=== PATIENT | male | born 1960 | race Caucasian/White ===

== ENCOUNTER → 2020-09-11 | Outpatient (CLI) | payer BC ==
[2020-09-11 13:42] LABS: BASO % 0.4 % (0.0-1.0); EOS # 0.1 10^3/uL (0.0-0.5); EOS % 0.8 % (0.0-3.0); HEMATOCRIT 41.2 % (42.0-52.0); HEMOGLOBIN 13.5 g/dl (13.5-17.5); LYMPH # 2.1 10^3/uL (1.5-5.0); LYMPH % 24.3 % (24.0-44.0); MEAN CORPUSCULAR HEMOGLOBIN 31.8 pg (27.0-33.0); MEAN CORPUSCULAR HGB CONC 32.8 g/dl (32.0-36.5); MEAN CORPUSCULAR VOLUME 97.2 fl (80.0-96.0); MONO # 0.8 10^3/uL (0.0-0.8); MONO % 8.8 % (2.0-8.0); NEUTROPHILS # 5.5 10^3/uL (1.5-8.5); NEUTROPHILS % 65.1 % (36.0-66.0); PLATELET COUNT, AUTOMATED 244 10^3/uL (150-450); RED BLOOD COUNT 4.24 10^6/uL (4.30-6.10); WHITE BLOOD COUNT 8.5 10^3/uL (4.0-10.0)
[2020-09-11 14:25] LABS: ERYTHROCYTE SEDIMENTATION RATE 30 mm/hr (0-20)
== END ==
LOC: M PLALAB 09:42
PROVIDERS: ATTEND Orthopaedic Surgery Adult Reconstructive Orthopaedic Surgery
DX: M70.42 Prepatellar bursitis, left knee (principal)

== ENCOUNTER → 2020-09-11 | Outpatient (CLI) | payer BC ==
--- NOTE | 2020-09-11 09:39 | REP ---
INDICATION: PAIN. COMPARISON: None. TECHNIQUE: Four views including upright AP view of both knees. FINDINGS: Standing view shows no evidence of joint space narrowing on either side. Overall mineralization pattern is normal. Lateral and sunrise views however show articular spurring of the patella consistent with early osteoarthritis. There is a diffuse prepatellar soft tissue swelling but no evidence of joint effusion. IMPRESSION: Prepatellar soft tissue swelling. Patellar articular spurring consistent with early osteoarthritis. Otherwise negative. <Electronically signed by Pedro Montero > 09/11/20 [id number]
== END ==
LOC: M SOG 08:17
PROVIDERS: ATTEND Orthopaedic Surgery Adult Reconstructive Orthopaedic Surgery
DX: M25.562 Pain in left knee (principal); M79.89 Other specified soft tissue disorders; M76.52 Patellar tendinitis, left knee

== ENCOUNTER 2021-02-23 21:06 | Emergency (ER) | payer BC ==
[~2021-02-23] VITALS: Ht 172.7 cm; Wt 94.8 kg
[2021-02-23] MEDS ORDERED: LISI20TA35 (21:14)
[2021-02-23 23:31] VITALS: BP 125/82
--- NOTE | 2021-02-25 07:34 | ECGEPIP ---
[facility] Test Date: 2021-02-23 Pat Name: ROBY SILVA Department: Room: - Gender: Male Basic Sciences Professor: PATRICIA : 1960 Requested By: MAICOL Santos Order Number: [id number] Reading MD: Buster Roberts Measurements Intervals [place] Rate: 83 P: 37 PA: 178 QRS: -72 QRSD: 100 T: 2 QT: 386 QTc: 453 Interpretive Statements Normal sinus rhythm Left axis deviation Inferior infarct , age undetermined Delayed anterior R wave progression Comparison tracing not on file Electronically Signed on 02-25-2021 7:34:01 EST by Buster Roberts
== END 2021-02-24 00:07 | disposition left against medical advice (07) ==
LOC: M ED 21:06
DX: Z53.21 Procedure and treatment not carried out due to patient leaving prior to being seen by health care provider (principal)

== ENCOUNTER 2021-02-24 09:29 | Emergency (ER) | payer BC ==
[~2021-02-24] VITALS: Ht 172.7 cm; Wt 93.2 kg
[~2021-02-24 09:29] MED LIST: LISI20TA35
[2021-02-24 11:42] LABS: VENOUS HCO3 19.3 MEQ/L (23.0-27.0); VENOUS O2 SATURATION 96.1 % (60.0-80.0); VENOUS PARTIAL PRESSURE O2 80.9 mmHg (30.0-50.0); VENOUS PH 7.412 UNITS (7.330-7.430); VENOUS STANDARD HCO3 21.1 MEQ/L; VENOUS TOTAL CO2 20.2 MEQ/L (24.0-28.0)
[2021-02-24 11:45] LABS: BASO % 0.2 % (0.0-1.0); EOS % 0.4 % (0.0-3.0); HEMATOCRIT 42.1 % (42.0-52.0); HEMOGLOBIN 14.4 g/dl (13.5-17.5); LYMPH # 2.1 10^3/uL (1.5-5.0); MEAN CORPUSCULAR HEMOGLOBIN 31.4 pg (27.0-33.0); MEAN CORPUSCULAR HGB CONC 34.2 g/dl (32.0-36.5); MEAN CORPUSCULAR VOLUME 91.9 fl (80.0-96.0); MONO # 0.6 10^3/uL (0.0-0.8); MONO % 10.5 % (2.0-8.0); NEUTROPHILS # 2.6 10^3/uL (1.5-8.5); NEUTROPHILS % 49.5 % (36.0-66.0); PLATELET COUNT, AUTOMATED 211 10^3/uL (150-450); RED BLOOD COUNT 4.58 10^6/uL (4.30-6.10); WHITE BLOOD COUNT 5.3 10^3/uL (4.0-10.0)
[2021-02-24 12:10] LABS: INR 0.89; PROTHROMBIN TIME 12.5 SECONDS (12.7-14.5)
[2021-02-24 12:11] LABS: PARTIAL THROMBOPLASTIN TIME 30.8 SECONDS (25.9-37.0)
[2021-02-24 12:26] LABS: ALT/SGPT 128 U/L (12-78); BILIRUBIN,DIRECT < 0.1 MG/DL (0.0-0.2); BILIRUBIN,TOTAL 0.6 MG/DL (0.2-1.0); NT-PRO BNP 7 PG/ML (<125); THYROID STIMULATING HORMONE 0.463 uIU/ML (0.358-3.740); THYROXINE (T4) 12.9 UG/DL (4.5-12.0); TOTAL PROTEIN 8.2 GM/DL (6.4-8.2)
[2021-02-24 13:11] LABS: FERRITIN 766 NG/ML (26-388); LDH LACTATE DEHYDROGENASE 223 U/L (87-241)
[2021-02-24 15:00] VITALS: BP 132/86
== END 2021-02-24 15:11 | disposition home or self-care (01) ==
LOC: M ED 09:29
DX: U07.1 COVID-19 (principal); I10 Essential (primary) hypertension; Z87.442 Personal history of urinary calculi

== ENCOUNTER 2021-02-26 09:47 | Outpatient (CLI) | payer BC ==
[~2021-02-26] VITALS: Ht 172.7 cm; Wt 92.0 kg
[~2021-02-26 09:47] MED LIST changes: +ACETAMINOPHEN TAB 650MG DOSE (2X325MG) PO PRN; +ALBUTEROL 90 MCG/ACT 8GM HFA INHALER INH PRN; +ALBUTEROL SULFATE 2.5 MG/0.5 ML INH NEB SOLN INH PRN; +CASIRIVIMAB (REGN10933) 600 MG, IMDEVIMAB (REGN10987) 600 MG in NS 250 ML IV ONE; +CASIRIVIMAB/IMDEVIMAB 1,200 MG in NS 250 ML IV ONE; +EPINEPHrine INJ 1 MG/ML 1ML AMP IM PRN; +NS 1,000 ML IV SCH; +diphenhydrAMINE 50MG/ML VIAL (J1200) IV PRN; +methylPREDNISolone 125MG 2ML VIAL IV PRN
[2021-02-26 10:02] VITALS: BP 160/76
[2021-02-26 10:32] VITALS: BP 123/61
[2021-02-26 11:02] VITALS: BP 137/63
[2021-02-26 12:02] VITALS: BP 137/69
== END 2021-02-26 12:02 | disposition home or self-care (01) ==
LOC: M OPCLI4 09:47
PROVIDERS: ATTEND Family Medicine
DX: U07.1 COVID-19 (principal)

== ENCOUNTER → 2022-12-21 | Outpatient (CLI) | payer BC ==
[~2022-12-21] MED LIST changes: -ACETAMINOPHEN TAB 650MG DOSE (2X325MG) PO PRN; -ALBUTEROL 90 MCG/ACT 8GM HFA INHALER INH PRN; -ALBUTEROL SULFATE 2.5 MG/0.5 ML INH NEB SOLN INH PRN; -CASIRIVIMAB (REGN10933) 600 MG, IMDEVIMAB (REGN10987) 600 MG in NS 250 ML IV ONE; -CASIRIVIMAB/IMDEVIMAB 1,200 MG in NS 250 ML IV ONE; -EPINEPHrine INJ 1 MG/ML 1ML AMP IM PRN; -NS 1,000 ML IV SCH; -diphenhydrAMINE 50MG/ML VIAL (J1200) IV PRN; -methylPREDNISolone 125MG 2ML VIAL IV PRN
== END ==
LOC: M WUC 15:06
PROVIDERS: ATTEND Nurse Practitioner Family
DX: M25.59 Pain in other specified joint (principal)

== ENCOUNTER 2023-06-13 16:00 | Emergency (ER) | payer BC ==
[~2023-06-13] VITALS: Ht 172.7 cm; Wt 98.5 kg
[2023-06-13 17:02] LABS: BASO % 0.5 % (0.0-1.0); EOS # 0.2 10^3/uL (0.0-0.5); EOS % 2.5 % (0.0-3.0); HEMATOCRIT 40.7 % (42.0-52.0); HEMOGLOBIN 13.6 g/dl (13.5-17.5); LYMPH % 33.2 % (24.0-44.0); MEAN CORPUSCULAR HEMOGLOBIN 31.5 pg (27.0-33.0); MEAN CORPUSCULAR HGB CONC 33.4 g/dl (32.0-36.5); MEAN CORPUSCULAR VOLUME 94.2 fl (80.0-96.0); MONO # 0.8 10^3/uL (0.0-0.8); MONO % 12.5 % (2.0-8.0); NEUTROPHILS # 3.1 10^3/uL (1.5-8.5); NEUTROPHILS % 50.6 % (36.0-66.0); PLATELET COUNT, AUTOMATED 244 10^3/uL (150-450); RED BLOOD COUNT 4.32 10^6/uL (4.30-6.10); WHITE BLOOD COUNT 6.1 10^3/uL (4.0-10.0)
[2023-06-13 17:22] LABS: LIPASE 43 U/L (12-53)
[2023-06-13 17:23] LABS: INR 0.94; PROTHROMBIN TIME 12.3 SECONDS (12.5-14.5)
[2023-06-13 17:24] LABS: ALKALINE PHOSPHATASE 69 U/L (46-116); ALT/SGPT 35 U/L (7.0-40); AST/SGOT 17 U/L (<34); BILIRUBIN,DIRECT < 0.1 MG/DL (<0.4); BILIRUBIN,TOTAL 0.3 MG/DL (0.3-1.2); CK-MB VALUE MASS < 1.0 NG/ML (<3.6); TOTAL PROTEIN 7.2 G/DL (5.7-8.2)
[2023-06-13 17:30] LABS: CPK CREATINE PHOSPHOKINASE 147 U/L (46-171); MB/CK RELATIVE INDEX 0.68 (< OR =4)
[2023-06-13] MEDS: ASPIRIN 81MG CHEW TABLET PO ONE (18:49)
[2023-06-13 18:50] VITALS: BP 122/81
[2023-06-13] MEDS: NITROGLYCERIN 0.4MG SUBL TABLET SL PRN (18:50)
[2023-06-13] MEDS ORDERED: ISOVUE-370 76% 100ML VIAL As Ordered ONE (19:09)
[2023-06-13 19:34] LABS: CK-MB VALUE MASS < 1.0 NG/ML (<3.6)
[2023-06-13 19:37] LABS: CPK CREATINE PHOSPHOKINASE 137 U/L (46-171); MB/CK RELATIVE INDEX 0.72 (< OR =4)
[2023-06-13 21:19] VITALS: BP 122/74; TEMP 98.2; O2SAT 99
== END 2023-06-13 21:26 | disposition home or self-care (01) ==
LOC: M ED 16:00
DX: R07.9 Chest pain, unspecified (principal); R91.1 Solitary pulmonary nodule; I10 Essential (primary) hypertension; Z87.442 Personal history of urinary calculi; Z79.811 Long term (current) use of aromatase inhibitors
CPT/HCPCS: 36415; 71045; 71275; 80047; 80076; 82550; 82553; 83690; 84484; 85025; 85610; 93005; 93041; 94760; 99285; Q9967

== ENCOUNTER 2023-10-12 09:42 | Day surgery (SDC) | payer BC ==
[~2023-10-12] VITALS: Ht 172.7 cm; Wt 92.1 kg
[~2023-10-12 09:42] MED LIST changes: +ACET-897 PO; +ATOR1TAB19 PO; -LISI20TA35; +LISI20TA35 PO
[2023-10-12] MEDS: NS 1,000 ML IV ONE (10:16)
[2023-10-12] MEDS ORDERED: propofoL 200 MG/20 ML VIAL As Ordered ONE (10:46)
[2023-10-12 10:58] VITALS: TEMP 98.2
[2023-10-12 11:22] VITALS: BP 122/76; O2SAT 99
== END 2023-10-12 11:32 | disposition home or self-care (01) ==
LOC: M OPP 09:42
PROVIDERS: ATTEND Surgery
DX: Z12.11 Encounter for screening for malignant neoplasm of colon (principal); Z86.010 Personal history of colon polyps; K63.5 Polyp of colon; I10 Essential (primary) hypertension; Z79.1 Long term (current) use of non-steroidal anti-inflammatories (NSAID); Z79.899 Other long term (current) drug therapy

== ENCOUNTER 2023-11-03 11:15 | Day surgery (SDC) | payer BC ==
[~2023-11-03] VITALS: Ht 172.7 cm; Wt 93.9 kg
[~2023-11-03 11:15] MED LIST changes: +KETOROLAC 60MG 2ML VIAL As Ordered ONE; +LIDOCAINE 2% 100MG/5ML SDV (FOR ANES.) As Ordered ONE; +MIDAZOLAM INJ 2MG/2ML VIAL As Ordered ONE; +ONDANSETRON 4MG 2ML VIAL As Ordered ONE; +ROCURONIUM BROMIDE 50MG/5ML VIAL As Ordered ONE; +SUGAMMADEX SODIUM 500 MG/5 ML VIAL (BRIDION) As Ordered ONE; +fentaNYL 100 MCG/2 ML INJECTION As Ordered ONE; +propofoL 200 MG/20 ML VIAL As Ordered ONE
[2023-11-03] MEDS ORDERED: LR 1,000 ML IV SCH ×2 (12:05→13:55)
[2023-11-03] MEDS: ceFAZolin SOD 2 GM in IV 1 EA IV ONE (13:10)
[2023-11-03] MEDS ORDERED: ACETAMINOPHEN 1000MG 100ML IV BAG As Ordered ONE (13:22)
[2023-11-03] MEDS ORDERED: HYDROmorphone HCL 2MG/ML 1ML VIAL As Ordered ONE (13:34)
[2023-11-03] MEDS ORDERED: ONDANSETRON 4MG 2ML VIAL IV PRN (13:55)
[2023-11-03] MEDS ORDERED: oxyCODONE 5MG TAB PO PRN (13:55)
[2023-11-03] MEDS ORDERED: fentaNYL 100 MCG/2 ML INJECTION IV PRN (13:55)
[2023-11-03] MEDS ORDERED: HYDROMORPHONE HCL 0.5 MG/ 0.5 ML SYRINGE IV PRN (13:55)
[2023-11-03] MEDS ORDERED: traMADol 50 MG TAB PO PRN (14:25)
[2023-11-03] MEDS: KETOROLAC 30 MG/ML 1ML VIAL IV ONE (14:33)
[2023-11-03] MEDS ORDERED: NS 1,000 ML IV SCH (15:00)
[2023-11-03 15:30] VITALS: BP 131/78; TEMP 97.2; O2SAT 99
== END 2023-11-03 15:43 | disposition home or self-care (01) ==
LOC: M SDC 11:15
PROVIDERS: ATTEND Surgery
DX: K42.9 Umbilical hernia without obstruction or gangrene (principal); I10 Essential (primary) hypertension; Z79.899 Other long term (current) drug therapy; Z87.442 Personal history of urinary calculi
CPT/HCPCS: 49591; 88302; C9290; J0131; J0665; J0690; J1100; J1170; J1885; J2250; J2405; J3010

== ENCOUNTER → 2023-11-14 | Outpatient (CLI) | payer BC ==
[~2023-11-14] MED LIST changes: -KETOROLAC 60MG 2ML VIAL As Ordered ONE; -LIDOCAINE 2% 100MG/5ML SDV (FOR ANES.) As Ordered ONE; +METHACHOLINE KIT (6 VIAL.NEB PREMIX) INH ONE; -MIDAZOLAM INJ 2MG/2ML VIAL As Ordered ONE; -ONDANSETRON 4MG 2ML VIAL As Ordered ONE; -ROCURONIUM BROMIDE 50MG/5ML VIAL As Ordered ONE; -SUGAMMADEX SODIUM 500 MG/5 ML VIAL (BRIDION) As Ordered ONE; -fentaNYL 100 MCG/2 ML INJECTION As Ordered ONE; -propofoL 200 MG/20 ML VIAL As Ordered ONE
== END ==
LOC: M CARPUL 09:45
PROVIDERS: ATTEND Internal Medicine Pulmonary Disease
DX: R06.00 Dyspnea, unspecified (principal)
CPT/HCPCS: 94070; J7674

== ENCOUNTER → 2023-11-28 | Outpatient (REF) | payer BC ==
[~2023-11-28] MED LIST changes: -METHACHOLINE KIT (6 VIAL.NEB PREMIX) INH ONE
== END ==
LOC: M LAB REF 22:29 → M SFHCDERM 22:29
PROVIDERS: ATTEND Nurse Practitioner Family
DX: C44.619 Basal cell carcinoma of skin of left upper limb, including shoulder (principal); C44.612 Basal cell carcinoma of skin of right upper limb, including shoulder; C44.519 Basal cell carcinoma of skin of other part of trunk

== ENCOUNTER → 2023-12-26 | Outpatient (CLI) | payer BC | LOC: M RAD 08:21 | PROVIDERS: ATTEND Internal Medicine Pulmonary Disease | DX: R91.1 Solitary pulmonary nodule (principal) ==

== ENCOUNTER → 2024-02-28 | Outpatient (CLI) | payer BC ==
[2024-02-28 15:22] LABS: BASO % 0.3 % (0.0-1.0); EOS # 0.1 10^3/uL (0.0-0.5); EOS % 1.1 % (0.0-3.0); HEMATOCRIT 41.2 % (42.0-52.0); HEMOGLOBIN 13.9 g/dl (13.5-17.5); LYMPH # 2.3 10^3/uL (1.5-5.0); MEAN CORPUSCULAR HEMOGLOBIN 32.6 pg (27.0-33.0); MEAN CORPUSCULAR HGB CONC 33.7 g/dl (32.0-36.5); MEAN CORPUSCULAR VOLUME 96.5 fl (80.0-96.0); MONO # 1.3 10^3/uL (0.0-0.8); MONO % 13.1 % (2.0-8.0); NEUTROPHILS # 5.9 10^3/uL (1.5-8.5); NEUTROPHILS % 61.1 % (36.0-66.0); PLATELET COUNT, AUTOMATED 260 10^3/uL (150-450); RED BLOOD COUNT 4.27 10^6/uL (4.30-6.10); WHITE BLOOD COUNT 9.6 10^3/uL (4.0-10.0)
[2024-02-28 15:29] LABS: ERYTHROCYTE SEDIMENTATION RATE 40 mm/hr (0-20)
== END ==
LOC: M PLALAB 12:12
PROVIDERS: ATTEND Physician Assistant
DX: M25.562 Pain in left knee (principal)

== ENCOUNTER → 2024-02-28 | Outpatient (CLI) | payer BC | LOC: M SOG 11:19 | PROVIDERS: ATTEND Physician Assistant | DX: M25.562 Pain in left knee (principal) ==

== ENCOUNTER → 2024-04-02 | Outpatient (REF) | payer BC | LOC: M LAB REF 15:03 | PROVIDERS: ATTEND Surgery | DX: L90.5 Scar conditions and fibrosis of skin (principal); Z85.828 Personal history of other malignant neoplasm of skin ==

== ENCOUNTER → 2024-05-28 | Outpatient (CLI) | payer BC ==
[~2024-05-28] MED LIST changes: +MELO15TA28 PO
== END ==
LOC: M EKG 07:02
PROVIDERS: ATTEND Anesthesiology
DX: I10 Essential (primary) hypertension (principal)

== ENCOUNTER 2024-06-04 15:21 | Day surgery (SDC) | payer BC ==
[~2024-06-04] VITALS: Ht 172.7 cm; Wt 88.8 kg
[2024-06-04] MEDS ORDERED: LR 1,000 ML IV SCH ×2 (15:25→19:10)
[2024-06-04] MEDS ORDERED: ONDANSETRON 4MG 2ML VIAL As Ordered ONE (15:54)
[2024-06-04] MEDS ORDERED: fentaNYL 100 MCG/2 ML INJECTION As Ordered ONE (15:54)
[2024-06-04] MEDS ORDERED: MIDAZOLAM INJ 2MG/2ML VIAL As Ordered ONE (15:54)
[2024-06-04] MEDS ORDERED: propofoL 200 MG/20 ML VIAL As Ordered ONE (15:55)
[2024-06-04] MEDS ORDERED: LIDOCAINE 2% 100MG/5ML SDV (FOR ANES.) As Ordered ONE (15:55)
[2024-06-04] MEDS ORDERED: ROCURONIUM BROMIDE 50MG/5ML VIAL As Ordered ONE (15:55)
[2024-06-04] MEDS ORDERED: ACETAMINOPHEN 1000MG/100ML IV BAG As Ordered ONE (15:59)
[2024-06-04] MEDS: ceFAZolin SOD 2 GM IV ONCE IV ONE (17:50)
[2024-06-04] MEDS ORDERED: KETOROLAC 30 MG/ML 1ML VIAL As Ordered ONE (18:01)
[2024-06-04] MEDS ORDERED: SUGAMMADEX SODIUM 500 MG/5 ML VIAL (BRIDION) As Ordered ONE (18:01)
[2024-06-04] MEDS ORDERED: oxyCODONE 5MG TAB PO PRN (19:10)
[2024-06-04] MEDS ORDERED: ONDANSETRON 4MG 2ML VIAL IV PRN (19:10)
[2024-06-04] MEDS ORDERED: fentaNYL 100 MCG/2 ML INJECTION IV PRN (19:10)
[2024-06-04] MEDS ORDERED: HYDROMORPHONE HCL 0.5 MG/ 0.5 ML SYRINGE IV PRN (19:10)
[2024-06-04 20:05] VITALS: BP 135/76; TEMP 97.2; O2SAT 97
== END 2024-06-04 20:13 | disposition home or self-care (01) ==
LOC: M SDC 15:21
PROVIDERS: ATTEND Surgery
DX: K40.90 Unilateral inguinal hernia, without obstruction or gangrene, not specified as recurrent (principal); I10 Essential (primary) hypertension; Z79.899 Other long term (current) drug therapy
CPT/HCPCS: 49650; C1781; J0131; J0665; J0690; J1100; J1885; J2250; J2405; J3010; S2900

== ENCOUNTER → 2024-11-21 | Outpatient (REF) | payer BC | LOC: M SFHCDERM 17:47 | PROVIDERS: ATTEND Nurse Practitioner Family | DX: D49.2 Neoplasm of unspecified behavior of bone, soft tissue, and skin (principal) ==

== ENCOUNTER → 2025-01-13 | Outpatient (CLI) | payer BC | LOC: M PLAIMG 07:36 | PROVIDERS: ATTEND Internal Medicine Pulmonary Disease | DX: R91.8 Other nonspecific abnormal finding of lung field (principal) ==

== ENCOUNTER 2025-02-13 16:20 | Emergency (ER) | payer BC ==
[~2025-02-13] VITALS: Ht 172.7 cm; Wt 95.1 kg
[2025-02-13] MEDS: TETANUS/DIPHTH/ACEL. PERTUSSIS 0.5 ML SYR IM.IMMUN ONE (16:51)
[2025-02-13] MEDS ORDERED: CEPH500C PO (17:14)
[2025-02-13 17:16] VITALS: BP 117/71; TEMP 97.6; O2SAT 95
[2025-02-13] MEDS: CEPHALEXIN 500 MG CAP PO ONE (17:26)
== END 2025-02-13 17:30 | disposition home or self-care (01) ==
LOC: M ED 16:20
DX: S61.002A Unspecified open wound of left thumb without damage to nail, initial encounter (principal); W27.8XXA Contact with other nonpowered hand tool, initial encounter; M18.12 Unilateral primary osteoarthritis of first carpometacarpal joint, left hand; M61.442 Other calcification of muscle, left hand; Y92.009 Unspecified place in unspecified non-institutional (private) residence as the place of occurrence of the external cause; Y93.89 Activity, other specified; Y99.9 Unspecified external cause status; Z23 Encounter for immunization; Z79.1 Long term (current) use of non-steroidal anti-inflammatories (NSAID); Z79.2 Long term (current) use of antibiotics; Z79.899 Other long term (current) drug therapy